=== PATIENT | female | born 1970 | race Caucasian/White ===

== ENCOUNTER 2021-04-01 16:50 | Outpatient (CLI) | payer OTHER, SELFPAY ==
--- NOTE | ~2021-04-01 | MM_ITS ---
EXAMINATION: MM screening [facility] BI w rigo HISTORY: Screening TECHNIQUE: Craniocaudal and mediolateral oblique 3-D tomosynthesis images were obtained and synthetic 2-D images were generated. CAD analysis was submitted and interpreted. COMPARISON: Comparison to multiple prior studies sequentially, with oldest reviewed study dated 06/2015. BREAST PARENCHYMAL COMPOSITION: Breast composed of scattered areas of fibroglandular density. FINDINGS: There is no evidence of suspicious mass, calcification, or architectural distortion to sugg est malignancy in either breast. There has been no suspicious interval change. IMPRESSION: 1. No mammographic evidence of malignancy. 2. Recommend routine screening mammography in one year. BI-RADS Category 1: Negative Reviewed, dictated and finalized at location A. IFIED PHARMACY TECHNICIAN
== END 2021-04-01 16:51 | disposition home or self-care (01) ==
PROVIDERS: Visit Provider Obstetrics & Gynecology
DX: Z12.31 Encounter for screening mammogram for malignant neoplasm of breast (principal)
CPT/HCPCS: 77063; 77067

== ENCOUNTER → 2021-05-30 03:02 | Outpatient (CLI) | payer OTHER, SELFPAY ==
[2021-05-30 11:40] LABS: SARS-CoV-2 RNA PCR Negative
== END ==
PROVIDERS: Visit Provider Internal Medicine Gastroenterology
DX: Z01.812 Encounter for preprocedural laboratory examination (principal); Z20.822 Contact with and (suspected) exposure to COVID-19
CPT/HCPCS: C9803; U0003; U0005

== ENCOUNTER 2021-06-02 00:09 | Day surgery (SDC) | payer OTHER, SELFPAY ==
[2021-05-20 15:00] VITALS: BMI 31.0
[2021-06-02 10:04] VITALS: BP 128/85; PULSE 81; RESP 16; TEMP 36.7; O2SAT 100
[2021-06-02] MEDS: LACTATED RINGERS 1,000 ML 150 ML IV CONT (10:06)
--- NOTE | 2021-06-02 10:13 | P.PNAN_ITS ---
Anes - Initial Pre Proc Eval Procedure: Operation Date: 06/02/21 11:00 Proposed Procedures p Screening Colonoscopy - Fritz Oh MD Date/Time: 06/02/21 10:13 Surgeon: Fritz Oh MD Pre Op Diagnosis: neoplasm screening Patient Data Age: 51 Gender: F Height: 1.63 m Weight: 83.1 kg Last Vital Signs Temp 36.7 C 06/02/21 10:04 Pulse 81 06/02/21 10:04 Resp 16 06/02/21 10:04 BP 128/85 06/02/21 10:04 Pulse Ox 100 06/02/21 10:04 Allergies Allergy/AdvReac Type Severity Reaction Status Date / Time No Known Allergies Allergy Mild Verified 06/02/21 10:03 Home Medications Medication Instructions Recorded Confirmed Type triamterene-hydrochlorothiazid 1 tablet PO DAILY 05/20/21 06/02/21 History Patient hx anesthesia problems: none Family hx anesthesia problems: none Results Review: All pre-operative results and documents have been reviewed as part of the pre-operative evaluation. [facility] Past Medical History Medical History (Updated 06/02/21 @ 07:50 by Tyrell Gomez DO) Asthma Hypertension Surgical History Surgical History (Updated 06/02/21 @ 07:50 by Tyrell Gomez DO) History of hysterectomy Family History Family History (Updated 11/22/15 @ 23:21 by DOCTOR UNKNOWN) Mother Patient's mother is in good health Father Patient's father is in good health Social History Social History Smoking packs per day: 0.5 Smoking cigarettes per day: 10.0 Years smoked: 3 Smoking pack-years: 1.50 Smoking status: Never smoker Tobacco type: cigarettes Alcohol intake: current Drinks per week: 1 Substance use: never Substance use type: does not use Living arrangements: alone Spiritual care concerns: No Anes - Eval Final PreProcedure Day of Procedure 06/02/21 10:13 Patient weight: obese Heart: regular rate and rhythm Lungs: clear to auscultation and normal air movement Airway: Mallampati scale class II Neurological: alert and oriented Last oral intake: >/= 8 hours ASA classification: III Emergent: no Anesthetic plan: proceed Anesthesia type and monitoring: general GIVS and standard monitoring Results Review: All pre-operative results and documents have been reviewed as part of the pre-operative evaluation. Informed Consent: The patient's anesthetic plan and its attendant risks and benefits were discussed with the patient/family/POA. Questions were solicited and answers provided to the satisfaction of the patient/family/POA.
--- NOTE | 2021-06-02 10:46 | PM.HPGS ---
History of Present Illness History of Present Illness Consent: Risks, benefits, and alternatives have been discussed and questions answered. Patient agrees to proceed with procedure. Chief complaint: neoplasm screening Narrative: Shell Nassar is a 51 year old female here for first screening colonoscopy Review of Systems Constitutional: Constitutional: Denies headache(s) and Denies weakness Eyes: Eyes: Denies blurry vision ENT: Reports Normal hearing present, Denies headache(s) and Denies neck pain Cardiovascular: Cardiovascular: Denies chest pain and Denies dyspnea Respiratory: Respiratory: Denies dyspnea Gastrointestinal: Gastrointestinal: Reports no additional gastrointestinal complaints Genitourinary: Genitourinary: Denies dysuria Musculoskeletal: Musculoskeletal: Denies neck pain Integumentary/Breasts: Skin/Breast: Denies dry skin Neurologic: Reports Normal hearing present, Denies headache(s) and Denies weakness Psychiatric: Psychiatric: Denies anxiety Endocrine: Endocrine: Denies change in body appearance Hematologic/Lymphatic: Hematologic/Lymphatic: Denies easy bleeding Allergic/Immunologic: Allergic/Immunologic: Denies urticaria PMFSH Past Medical History Medical History (Updated 06/02/21 @ 10:48 by Fritz Oh MD) Asthma Colon cancer screening Hypertension Surgical History Surgical History (Updated 06/02/21 @ 07:50 by Tyrell Gomez DO) History of hysterectomy Family History Family History (Updated 11/22/15 @ 23:21 by DOCTOR UNKNOWN) Mother Patient's mother is in good health Father Patient's father is in good health Social History Social History Smoking packs per day: 0.5 Smoking cigarettes per day: 10.0 Years smoked: 3 Smoking pack-years: 1.50 Smoking status: Never smoker Tobacco type: cigarettes Alcohol intake: current Drinks per week: 1 Substance use: never Substance use type: does not use Living arrangements: alone Spiritual care concerns: No Meds Home Medications and Allergies Home Medications Medication Instructions Recorded Confirmed Type triamterene-hydrochlorothiazid 1 tablet PO DAILY 05/20/21 06/02/21 History Allergies Allergy/AdvReac Type Severity Reaction Status Date / Time No Known Allergies Allergy Mild Verified 06/02/21 10:03 Vital Signs Vital Signs - 24 hr 06/02/21 10:04 Temperature 98.1 F Pulse Rate 81 Respiratory Rate 16 Blood Pressure 128/85 Pulse Oximetry 100 Exam Const: General: comfortable and no acute distress HENMT: General nose exam: Normal nares present Eyes: General: appearance normal, both eyes and all related structures Neck: Neck: no JVD Resp: Auscultation: clear to auscultation bilaterally Cardio: Rate: regular rate Rhythm: regular rhythm GI: Inspection: non-distended GI Palp: Yes Soft to palpation Skin: General skin exam: normal color Neuro: General: gait normal Speech: normal speech Extrem: General: normal to inspection Psych: Mental Status: mental status grossly normal Assessment and Plan Assessment and plan (1) Colon cancer screening: Code(s): Z12.11 - Encounter for screening for malignant neoplasm of colon Status: Acute Assessment and Plan: colonoscopy
[2021-06-02 11:09] VITALS: BP 112/54; PULSE 89; RESP 17; O2SAT 100
[2021-06-02 11:19] VITALS: BP 118/71; PULSE 87; RESP 18; O2SAT 100
[2021-06-02 11:29] VITALS: BP 166/74; PULSE 87; RESP 14; O2SAT 100
== END 2021-06-02 11:38 | disposition home or self-care (01) ==
PROVIDERS: Visit Provider Internal Medicine Gastroenterology
PROC: 0DJD8ZZ Inspection of Lower Intestinal Tract, Via Natural or Artificial Opening Endoscopic (ICD-10-PCS; CPT 45378; principal; 2021-06-02 11:00)
DX: Z12.11 Encounter for screening for malignant neoplasm of colon (principal); K64.8 Other hemorrhoids; D12.2 Benign neoplasm of ascending colon; J45.909 Unspecified asthma, uncomplicated; I10 Essential (primary) hypertension; E66.9 Obesity, unspecified; Z68.31 Body mass index [BMI] 31.0-31.9, adult
CPT/HCPCS: 45385; 88305; C9803; J2704; J7120; U0003; U0005

== ENCOUNTER 2021-08-09 10:23 | Outpatient (CLI) | payer OTHER, SELFPAY ==
--- NOTE | ~2021-08-09 | DEXA_ITS ---
Bone Density Report Name: LORRAINE DEL RIO Age: 51 Sex: Female Ethnicity: White Date of : 1970 Indication: postmenopausal; screening for osteoporosis; height loss; hysterectomy; Referring Provider: RENÉ EDMOND Study: Bone densitometry was performed. Exam Date: August 09, 2021 Accession number: [id number] Bone Density: Region BMD T-score Z-score Classification AP Spine(L1-L4) 1.010 -0.3 0.5 Normal Femoral Neck (Left) 0.831 -0.2 0.7 Normal Total Hip (Left) 1.034 0.8 1.3 Normal Femoral Neck (Right) 0.825 -0.2 0.6 Normal Total Hip (Right) 0.997 0.4 1.0 Normal Total Hip Mean 1.016 0.6 1.2 Normal World Health Organization criteria for BMD impression classify patients as: Normal (T-score at or above -1.0), Osteopenia (T-score between -1.0 and -2.5), or Osteoporosis (T-score at or below -2.5). 10-year Fracture Risk: FRAX not reported because: All T-scores for Spine Total, Hip Total, Femoral Neck at or above -1.0 Clinical Information Provided by Patient: Has the following medical conditions: Hysterectomy Patient maximum height was 64 Menopause Age: 36 No regular weight bearing exercise Does not regularly consume dairy products Onset of menses at age 14 Number of children 2 Impression: The patient has normal bone mass. Discussion: BONE DENSITY IS ABOVE THE MINIMUM DESIRABLE LEVEL AT ALL SKELETAL SITES TESTED. This patient?s bone mineral density is above the minimum desirable level (T-score -1.0 or better) at all sites measured. The patient should follow a healthful lifestyle (good nutrition with adequate calcium and vitamin D, and appropriate weight-bearing exercise). Follow-Up: Consider repeating this study in 5 years or sooner if there is some new clinical indication. Reported by: REBECCA on 08/11/2021 12:43:00 PM. Reviewed, dictated and finalized at location [facility] AP[facility]ICIO
== END 2021-08-09 10:24 | disposition home or self-care (01) ==
PROVIDERS: Visit Provider Obstetrics & Gynecology
DX: Z78.0 Asymptomatic menopausal state (principal)
CPT/HCPCS: 77080

== ENCOUNTER 2025-01-25 08:06 | Outpatient (CLI) | payer OTHER, SELFPAY ==
--- OUTSIDE RECORDS SUMMARY | 2005-11-23 05:15 | XMS_ITS | Continuity of Care Document ---
Author Organization [facility] Address [address] [place] [address] Phone Care Team Providers Care Station Cook Name Role Phone Ildefonso Smith MD Unavailable Unavailable Advance Directives Directive Yes / No Effective Date File Name No Information Encounters Encounter Description Practice Location Reason(s) For Visit Diagnoses Date Provider Providers Copied on Encounter [facility], [address] [place], [place], [id number], [place] tel:[phone] [facility] No Information [address] Fregoso. [address], [place], [place], [id number], [place]. tel:[phone] Family History Family Member Type Diagnosis Age At Onset No Information Payers Payer name Insurance type Covered constitution party ID Authorshiraa tidamian(s) [facility] CI [id number] Social History Type Description Quantity Date Captured Comments Sex Female Smoking Status No Information Chief Complaint And Reason For Visit No Information Reason For Referral Reason For Referral No Information History Of Present Illness Encounter Date Complaint History Of Prese nt Illness No Information Functional Status Date Functional Assessmen t No Information Instructions Date Instruction Additional Infor mation No Information Assessments Type Assessment Date No Information Patient Care Teams Name Effective Dates (start - stop) Status Members No Information
--- NOTE | ~2025-01-25 | MM_ITS ---
EXAMINATION: MM screening [facility] BI w rigo HISTORY: Screening TECHNIQUE: Craniocaudal and mediolateral oblique 3-D tomosynthesis images were obtained and synthetic 2-D images were generated. CAD analysis was submitted and interpreted. COMPARISON: Comparison to multiple prior studies sequentially, with oldest reviewed study dated 12/28/2015. BREAST PARENCHYMAL COMPOSITION: Not dense: There are scattered areas of fibroglandular density. FINDINGS: The right breast is stable without evidence for malignancy. There is a new low-density mass in the upper central aspect of the left breast, middle third. IMPRESSION: 1. New low-density mass left breast, upper central breast, middle third. 2. Additional mammographic views and possible breast ultrasound are recommended. BI-RADS Category 0: Incomplete: Needs additional imaging evaluation. Reviewed, dictated and finalized at location B. IMPRESSION: 1. New low-density mass left breast, upper central breast, middle third. 2. Additional mammographic views and possible breast ultrasound are recommended . BI-RADS Category 0: Incomplete: Needs additional imaging evaluation.
--- OUTSIDE RECORDS SUMMARY | 2025-01-25 08:11 | XMS_ITS | Clinical Summary ---
Author Organization [facility] Address [address] [place] [address] Care Team Providers Care Firer Diesel Locomotive Name Role Phone Unavailable Primary Care Provider Unavailabl e Source Comments [facility],non-owned Affiliates and Associated Physician Practices is amultiple site organization consisting of ambulatory clinics and hospital sitesin [place], [place], [place] and [place]. This disclosure is being madepursuant to the Care Everywhere program and may not contain all information available regarding this patient. Last updated 18.[facility] Allergies No known active allergies Medications * Be aware that medications may not be up to date on this document. Alwaysverify current medications with the patient. TRIAMTERENE-HCTZ PO Active sulfamethoxazole -trimethoprim (BACTRIM DS; SEPTRA DS) 800-160 MG tablet Take 1 (one) tablet by mouth 2 times daily 14 tablet 03/05/2021 Active Family History Medical History Relation Name Comments Cancer - Breast Maternal Aunt 1 Cancer - Breast Maternal Aunt 2 Relation Name Status Comments Maternal Aunt 1 Maternal Aunt 2 Social History Tobacco Use Types Packs/Day Years Used Date Smoking Tobacco: Former Cigarettes 0.3 5 Smokeless Tobacco: Never Tobacco Cessation:Counseling Given: No Comments No Sex and Gender Information Value Date Recorded Sex Assigned at Not on file Legal Sex Female 9:03 AM CDT Gender Identity Not on file Sexual Orientation Not on file Last Filed Vital Signs Vital Sign Reading Time Taken Comments Blood Pressure 136/84 01/18/2019 10:54 AM CDT Pulse 75 01/18/2019 10:54 AM CDT Temperature 37.2 C (98.9 F) 01/18/2019 10:54 AM CDT Respiratory Rate 16 01/18/2019 10:54 AM CDT Oxygen Saturation 98% 01/18/2019 10:54 AM CDT Inhaled Oxygen Concentration - - Weight 81.6 kg (180 lb) 03/05/2021 3:13 PM GRADUATE TEACHING ASSISTANT Height 162.6 cm (5' 4) 03/05/2021 3:13 PM GRADUATE TEACHING ASSISTANT Body Mass Index 30.9 03/05/2021 3:13 PM GRADUATE TEACHING ASSISTANT Plan of Treatment Health Maintenance Due Date Last Done Comments COLOGUARD (AGES 45-75) - COL ON CA SCREENING 1970 COLON MONITORING 1970 COLONOSCOPY - COLON CA SCREENING 1970 CT COLONOGRAPHY - COLON CA SCREENING 1970 Colorectal Cancer Screening 1970 FIT - COLON CA SCREENING 1970 FLEX SIG - COLON CA SCREENING 1970 LIPID TESTING 1970 HIV SCREENING 1985 HEPATITIS C SCREENING 01/12/1988 DTAP/TDAP/TD VACCINES (1 - Tdap) 1989 HEPATITIS B VACCINE (1 of 3 - 19+ 3-dose series) 1989 PNEUMOCOCCAL VACCINE 50+ (1 of 1 - PCV) 01/17/2020 ZOSTER VACCINE (1 of 2) 01/17/2020 SCREENING FOR DIABETES 03/05/2021 MAMMOGRAM 12/06/2021 12/07/2019, 09/08/2018 DEPRESSION SCREENING 04/26/2024 COVID-19 VACCINE (1 - 2023-2 5 season) 2024 INFLUENZA VACCINE (#1) 2024 HIB VACCINE Aged Out No longer eligi ble based on patient's age to complete this topic HPV VACCINE Aged Out No longer eligi ble based on patient's age to complete this topic MENINGOCOCCAL (Group B) VACCINE SHARED DECISION-MAKING Aged Out No longer eligible based on patient's age to complete this topic MENINGOCOCCAL GROUPS A/C/Y/W VACCINE Aged Out No longer eligible b ased on patient's age to complete this topic Insurance [facility]
--- OUTSIDE RECORDS SUMMARY | 2025-01-25 08:12 | XMS_ITS | Clinical Summary ---
Author Organization [facility] e Address [address] [place] [address] Care Team Providers Care Pipe Fitter Ammonia Name Role Phone Torie Avila DO Primary Care Provider [phone] Allergies No known active allergies Medications ALPRAZolam (Xanax) 0.25 mg tabletIndication s:Situational anxiety Take 1 Tablet (0.25 mg) by mouth 2 times daily as needed for Anxiety. 30 Tablet 1 0 Active albuterol HFA 90 mcg inhalerIndicatio ns:Mild intermittent asthma without complication USE 2 INHALATIONS EVERY 6 HOURS NEEDED FOR SHORTNESS OF BREATH 25.5 Gram 1 0 Active triamterene-hydr oCHLOROthiazide (MAXZIDE) 75-50 mg tabletIndication s:Benign hypertension Take 1 Tablet by mouth daily. Follow up with Dr. Avila for further refills. 30 Tablet 1 Active Active Problems Problem Noted Date Diagnosed Date Mild intermittent asthma without complication Situational anxiety 09/11/2019 Benign hypertension 01/01/2017 Family History Medical History Relation Name Comments Heart Disease Maternal Grandmother Hypertension Mother Breast Cancer Other maternal aunt Other Paternal Uncle leukemia Relation Name Status Comments Father Alive Maternal Grandmother Mother Alive Other Paternal Uncle Social History Tobacco Use Types Packs/Day Years Used Date Smoking Tobacco: Former Smokeless Tobacco: Never Alcohol Use Standard Drinks/Week Comments Yes 0 (1 standard drink = 0.6 oz pur e alcohol) Comments No Sex and Gender Information Value Date Recorded Sex Assigned at Not on file Legal Sex Female 12:45 PM CDT Gender Identity Not on file Sexual Orientation Not on file Last Filed Vital Signs Vital Sign Reading Time Taken Comments Blood Pressure 110/72 09/29/2018 2:48 PM CDT Pulse 78 09/29/2018 2:48 PM CDT Temperature 36.9 C (98.4 F) 09/11/2019 10:40 AM CDT Respiratory Rate 18 01/28/2017 9:10 AM CDT Oxygen Saturation 98% 09/29/2018 2:48 PM CDT Inhaled Oxygen Concentration - - Weight 86.2 kg (190 lb) 09/11/2019 10:40 AM CDT Height 162.6 cm (5' 4) 09/11/2019 10:40 AM CDT Body Mass Index 32.61 09/11/2019 10:40 AM CDT Plan of Treatment Health Maintenance Due Date Last Done Comments DTAP/TDAP/TD VACCINES (1 - Tdap) 1989 HEPATITIS B VACCINES (1 of 3 - 19+ 3-dose series) 1989 HPV/Cotest (21-29) 1991 CERVICAL CANCER SCREENING 01/17/2000 HPV/Cotest (30-65) 01/17/2000 PAP SMEAR 01/17/2000 COLORECTAL SCREENING 2015 Colorectal Cancer Screening 2015 FIT-DNA Q 3 years 2015 FIT/FOBT Q 1 year 2015 Flex Sig/CT Colonography Q 5 years 2015 ZOSTER VACCINE (1 of 2) 01/17/2020 BREAST CANCER SCREENING 12/06/2020 12/07/19 20, 12/07/2019, 09/08/2018, Additional history exists INFLUENZA VACCINE (#1) 2024 Procedures Procedure Name Priority Date/Time Associated Diagnosis Comments MAMMO 3D ALYSSIA DIAGNOSTIC LEO AT W OR WO CAD Routine 12/07/2019 from Last 3 Months or Most Recently Relevant to Health Maintenance Results * MAMMO DIAG BILAT 3D ALYSSIA W OR WO CAD (12/07/2019) Anatomical Region Laterality Modality Breast Bilateral Mammography us Abstract Provider MAMMO ORDERABLES Edited Result - Final from Last 3 Months or Most Recently Relevant to Health Maintenance Insurance [facility] BLUE ACCESS/TRUE BLUE PPO Care Teams Pipe Fitter Ammonia Relationship Specialty Start Date End Date Torie Avila DO PCP - General Family Practice 01/01/17
== END 2025-01-25 08:07 | disposition home or self-care (01) ==
LOC: ANHFOHIMG 08:09
PROVIDERS: PCP Family Medicine; Visit Provider Obstetrics & Gynecology Gynecology
DX: Z12.31 Encounter for screening mammogram for malignant neoplasm of breast (principal); R92.8 Other abnormal and inconclusive findings on diagnostic imaging of breast
CPT/HCPCS: 77063; 77067

== ENCOUNTER 2025-03-09 12:37 | Outpatient (CLI) | payer OTHER, SELFPAY ==
--- NOTE | ~2025-03-09 | MMUS_ITS ---
EXAMINATION: MM diagnostic [facility] LT w rigo, US breast LT limited HISTORY: Follow-up left breast mass TECHNIQUE: Additional 3-D tomosynthesis images of the left breast were performed and synthetic 2-D images were generated. CAD analysis was submitted and interpreted. High resolution Limited left breast ultrasound was performed. COMPARISON: Comparison to multiple prior studies sequentially, with oldest reviewed study dated 12/28/2015. BREAST PARENCHYMAL COMPOSITION: Dense: The breasts are heterogeneously dense, which may obscure small masses FINDINGS: MAMMOGRAPHIC FINDINGS: There is a low-density mass in the upper central aspect of the left breast, middle third which is partially obscured by fibroglandular tissue. There are surgical clips in the lower inner quadrant of the left breast suggesting prior lumpectomy. No other masses, suspicious calcifications or architectural distortion. ULTRASOUND: Limited left breast ultrasound: At 9:00, 4 cm from the nipple there is irregular shaped hypoechoic structure measuring 4 x 3 x 3 mm with internal cystic changes. At 12:00, 3 cm from the nipple there is an oval hypoechoic 3 mm mass with parallel orientation, circumscribed margins and no internal vascularity, likely benign. At 12:00, 3 cm from the nipple there is a 12 mm cyst corresponding to the mammographic finding. In the subareolar location there mildly prominent ducts. There is also a 7 mm cyst in the subareolar location. IMPRESSION: 1. Slightly irregular shaped hypoechoic partially cystic structure of the left breast at 9:00, 4 cm from the nipple measuring 4 mm, possibly related to scarring/prior postoperative change given the location. Probable benign additional left breast masses identified by ultrasound. 2. Recommend 6 month follow-up diagnostic left mammogram and Limited left breast ultrasound. BI-RADS category 3, probably benign findings. Reviewed, dictated and finalized at location B. TRAINER MAINTENANCE WORKER IMPRESSION: 1. Slightly irregular shaped hypoechoic partially cystic structure of the left breast at 9:00, 4 cm from the nipple measuring 4 mm, possibly related to scarri ng/prior postoperative change given the location. Probable benign additional le ft breast masses identified by ultrasound. 2. Recommend 6 month follow-up diagnostic left mammogram and Limited left breas t ultrasound. BI-RADS category 3, probably benign findings.
== END 2025-03-09 12:38 | disposition home or self-care (01) ==
LOC: ANHFOHIMG 12:38
PROVIDERS: PCP Family Medicine; Visit Provider Obstetrics & Gynecology Gynecology
DX: R92.8 Other abnormal and inconclusive findings on diagnostic imaging of breast (principal)
CPT/HCPCS: 76642; 77061; 77065; G0279